=== PATIENT | female | born 1980 | race Caucasian/White ===

== ENCOUNTER 2018-01-10 20:05 | Emergency (ER) | payer OTHER ==
--- NOTE | 2018-01-10 21:11 | EDPHY ---
General Time Seen by Provider: 01/10/18 20:26 Narrative: CHIEF COMPLAINT: Left foot pain HISTORY OF PRESENT ILLNESS: Patient presents with complaints of left foot pain. She says she injured it several days ago. Pain is located over the base of the 5th metatarsal. It is minimal at this time and at rest. It is moderate to severe with certain activities. She can typically avoid painful things with these. She is concerned because it continues to increasing pain with exercise. No numbness, tingling or weakness. No laceration or puncture. No injury to the ipsilateral ankle, schumacher or knee. No other associated complaints or modifying factors. ESTABLISHED ORTHOPEDIST: None REVIEW OF SYSTEMS: Ten systems reviewed and are negative unless otherwise noted in the HPI PAST MEDICAL HISTORY: Denies any medical history PAST SURGICAL HISTORY: No recent surgeries SOCIAL HISTORY: Nonsmoker. Lives and works here independently FAMILY HISTORY: EXAMINATION General Appearance: Alert, no distress Cardiovascular: DP and PT pulses are 2+ symmetrically. There is good signs of perfusion to the left foot. Neurological: A&O, sensory to the dorsum the feet and plantar surface of the fetus symmetric. Strength of the great toe symmetric at 5 of 5 Skin: Warm and dry, no rash. No petechiae. No purpura. No ecchymosis, laceration or puncture Extremities: Tenderness of the left foot over the 5th metatarsal base. There is no crepitus or deformity. Range of motion of the ankle and toes symmetric to the right lower extremity.no tenderness elsewhere Psychiatric: Mood and affect normal DIFFERENTIAL DIAGNOSES: Including but not limited to . Sprain, strain, fracture, dislocation MDM: 8:25 p.m. Acute left-sided pain is that I suspect is likely sprain versus peroneus injury. Low suspicion for fracture dislocation. X-rays pending. 9:25 p.m. X-ray of the foot is negative for acute fracture. I have re-evaluated patient discussed this with her. Her pain does correlate to the insertion of the peroneus to her she is. I offered a postop shoe or a [place] boot, but she has declined. She says that her symptoms are tolerable issue and that she knows what to avoid. She will ice and elevate often. She will take anti- inflammatories as needed. She has been provided the on-call orthopedic information for definitive care. Discharged home stable condition per SUPERVISION: This patient was independently evaluated without direct involvement of or examination by the attending physician. ED Precautions: Worsening pain. Erythema, edema, cyanosis, pallor, paresthesia or anesthesia. - History Smoking Status: Never smoked - Objective Vital Signs: Initial Vital Signs Temperature (C) 98.2 F 01/10/18 20:07 Heart Rate 68 01/10/18 20:07 Respiratory Rate 20 01/10/18 20:07 Blood Pressure 108/63 01/10/18 20:07 O2 Sat (%) 98 01/10/18 20:07 O2 Delivery Mode Room Air Allergies/Adverse Reactions: No Known Allergies Allergy (Unverified 01/10/18 20:09) Departure - Departure Disposition: Home, Routine, Self-Care Clinical Impression: Sprain of foot, left Qualifiers: Encounter type: initial encounter Qualified Code(s): S93.602A - Unspecified sprain of left foot, initial encounter Condition: Good Instructions: Foot Sprain (ED) Additional Instructions: 1. Ice and elevation often 2. Ibuprofen 400 mg every 6-8 hours as needed for pain 3. Definitive care with orthopedist as documented Referrals: Norma Young MD [Primary Care Provider] - As per Instructions Wellington Coppola MD [Medical Doctor] - As per Instructions
[2018-01-10 21:34] VITALS: BP 106/62
== END 2018-01-10 21:34 | disposition home or self-care (01) ==
DX: S93.602A Unspecified sprain of left foot, initial encounter (principal); X58.XXXA Exposure to other specified factors, initial encounter

== ENCOUNTER 2018-08-21 17:30 | Emergency (ER) | payer OTHER ==
--- NOTE | 2018-08-21 18:31 | EDPHY ---
H & P Stated Complaint: Pt had trans period SOB/L shoulder pn/numb. Mostly reolved. Time Seen by Provider: 08/21/18 18:09 HPI/ROS: CHIEF COMPLAINT: Transient left arm paresthesia, dyspnea, lightheadedness HISTORY OF PRESENT ILLNESS: The patient presents the ED after she experienced some transient paresthesias in her left arm, slight dyspnea and lightheadedness while driving home at 5:00 a.m. This afternoon. The patient was concerned that she may be having heart attack which prompted her presentation to the emergency department. The patient has no coronary artery disease risk factors. She exercises without symptoms of chest pain or shortness of breath. The patient denies any asymmetric calf pain or swelling. She denies pleuritic chest pain. The patient has no significant past medical history. She currently is asymptomatic. REVIEW OF SYSTEMS: A comprehensive 10 point review of systems is otherwise negative aside from elements mentioned in the history of present illness. Source: Patient Exam Limitations: No limitations - Personal History Current Tetanus/Diphtheria Vaccine: Unsure - Medical/Surgical History Hx Asthma: No Hx Chronic Respiratory Disease: No Hx Diabetes: No Hx Cardiac Disease: No Hx Renal Disease: No Hx Cirrhosis: No Hx Alcoholism: No Hx HIV/AIDS: No Hx Splenectomy or Spleen Trauma: No Other PMH: Anxiety, - Social History Smoking Status: Never smoked - Physical Exam Exam: General Appearance: Alert, no distress Eyes: Pupils equal and round no pallor or injection ENT, Mouth: Mucous membranes moist Respiratory: There are no retractions, lungs are clear to auscultation Cardiovascular: Regular rate and rhythm Gastrointestinal: Abdomen is soft and nontender, no masses, bowel sounds normal Neurological: A&O, normal motor function, normal sensory exam, normal cranial nerves Skin: Warm and dry, no rashes Musculoskeletal: Neck is supple nontender Extremities: symmetrical, full range of motion Constitutional: Initial Vital Signs Temperature (C) 36.8 C 08/21/18 17:41 Heart Rate 77 08/21/18 17:41 Respiratory Rate 16 08/21/18 17:41 Blood Pressure 125/72 H 08/21/18 17:41 O2 Sat (%) 98 08/21/18 17:41 O2 Delivery Mode Room Air Allergies/Adverse Reactions: No Known Allergies Allergy (Verified 08/21/18 17:41) Medical Decision Making - Diagnostics EKG Interpretation: EKG: Complete interpretation has been separately recorded in the [facility] archive. Summary impression: Sinus rhythm, rate 65 ED Course/Re-evaluation: The patient presents the ED after an episode of atypical chest pain and dyspnea. I do believe that she likely was experiencing a vasovagal episode precipitated by some paresthesias in her left arm which have resolved. The patient likely had some contributing anxiety which prompted additional symptoms to develop today. At this point time she is feeling better. I do not feel that further workup is indicated. The patient will be instructed to return to the ED for any recurrent symptoms or other concerns. The patient's troponin is negative. She has no evidence of anemia or significant metabolic derangement. Differential Diagnosis: Differential diagnosis considered includes dehydration, metabolic abnormality, anemia - Data Points Laboratory Results: Laboratory Results 08/21/18 18:30 08/21/18 18:30 08/21/18 08/21/18 08/21/18 18:33 18:30 18:30 WBC 4.89 10^3/uL 10^3/uL (3.80-9.50) RBC 4.36 10^6/uL 10^6/uL (4.18-5.33) Hgb 13.8 g/dL g/dL (12.6-16.3) Hct 40.9 % % (38.0-47.0) MCV 93.8 fL fL (81.5-99.8) MCH 31.7 pg pg (27.9-34.1) MCHC 33.7 g/dL g/dL (32.4-36.7) RDW 12.5 % % (11.5-15.2) Plt Count 212 10^3/uL 10^3/uL (150-400) MPV 10.4 fL fL (8.7-11.7) Neut % (Auto) 51.3 % % (39.3-74.2) Lymph % (Auto) 39.3 % % (15.0-45.0) [place] % (Auto) 7.8 % % (4.5-13.0) Eos % (Auto) 0.8 % % (0.6-7.6) Baso % (Auto) 0.6 % % (0.3-1.7) Nucleat RBC Rel Count 0.0 % % (0.0-0.2) Absolute Neuts (auto) 2.51 10^3/uL 10^3/uL (1.70-6.50) Absolute Lymphs (auto) 1.92 10^3/uL 10^3/uL (1.00-3.00) Absolute Monos (auto) 0.38 10^3/uL 10^3/uL (0.30-0.80) Absolute Eos (auto) 0.04 10^3/uL 10^3/uL (0.03-0.40) Absolute Basos (auto) 0.03 10^3/uL 10^3/uL (0.02-0.10) Absolute Nucleated RBC 0.00 10^3/uL 10^3/uL (0-0.01) Immature Gran % 0.2 % % (0.0-1.1) Immature Gran # 0.01 10^3/uL 10^3/uL (0.00-0.10) Sodium 137 mEq/L mEq/L (135-145) Potassium 3.8 mEq/L mEq/L (3.5-5.2) Chloride 105 mEq/L mEq/L (97-110) Carbon Dioxide 25 mEq/l mEq/l (22-31) Anion Gap 7 mEq/L mEq/L (6-14) BUN 12 mg/dL mg/dL (7-23) Creatinine 0.7 mg/dL mg/dL (0.6-1.0) Estimated GFR > 60 Glucose 85 mg/dL mg/dL (70-100) Calcium 9.6 mg/dL mg/dL (8.5-10.4) POC Troponin I 0.00 ng/mL ng/mL (0.00-0.08) Point of Care Test Results: Chemistry 08/21/18 18:33 POC Troponin I 0.00 ng/mL ng/mL (0.00-0.08) Departure - Departure Disposition: Home, Routine, Self-Care Clinical Impression: Paresthesia, Vasovagal near syncope Condition: Good Instructions: Syncope (DC) Additional Instructions: 1. Please try and increase your fluid intake as mild dehydration may have contributed to your symptoms today. 2. All testing done in the emergency department today demonstrates no evidence of a cardiac condition. 3. Please return to the ED for any recurrent symptoms, chest pain, difficulty breathing or other concerns. Referrals: Norma Young MD [Primary Care Provider] - As per Instructions
--- NOTE | 2018-08-21 18:32 | CPEKG ---
Test Reason : OPEN Blood Pressure : / mmHG Vent. Rate : 065 BPM Atrial Rate : 066 BPM P-R Int : 166 ms QRS Dur : 094 ms QT Int : 398 ms P-R-T Axes : 080 085 049 degrees QTc Int : 414 ms Sinus rhythm Confirmed by dK Drake ([id number]) on 08/21/2018 6:32:15 PM Referred By: Confirmed By:Kd Drake
[2018-08-21 18:43] LABS: PLATELET COUNT 212 10^3/uL (150-400)
[2018-08-21 18:49] VITALS: BP 111/65
== END 2018-08-21 19:11 | disposition home or self-care (01) ==
DX: R20.2 Paresthesia of skin (principal); R55 Syncope and collapse; F41.9 Anxiety disorder, unspecified
CPT/HCPCS: 84484-ER

== ENCOUNTER → 2018-11-17 | Outpatient (CLI) | payer OTHER | LOC: FIMAGING 13:02 | PROVIDERS: ATTEND Family Medicine | DX: Z12.31 Encounter for screening mammogram for malignant neoplasm of breast (principal) ==